=== PATIENT | female | born 1990 ===

== ENCOUNTER 2021-12-25 14:36 | Observation (INO) | payer SELFPAY ==
[~2021-12-25] VITALS: Ht 165.1 cm; Wt 109.0 kg
[2021-12-25 15:16] LABS: BASOPHILS ABSOLUTE AUTO 0.04 K/mm3 (0.00-0.23); BASOPHILS PERCENT AUTO 0 % (0-2); EOSINOPHILS ABSOLUTE AUTO 0.23 K/mm3 (0.00-0.68); EOSINOPHILS PERCENT AUTO 2 % (0-6); Hematocrit 36.4 % (33.0-51.0); Hemoglobin 12.4 g/dL (11.5-16.0); IMMATURE GRAN ABSOLUTE AUTO 0.02 K/mm3 (0.00-0.10); IMMATURE GRAN PERCENT AUTO 0 % (0-1); LYMPHOCYTES ABSOLUTE AUTO 2.55 K/mm3 (0.84-5.20); LYMPHOCYTES PERCENT AUTO 26 % (21-46); MONOCYTES ABSOLUTE AUTO 0.57 K/mm3 (0.16-1.47); MONOCYTES PERCENT AUTO 6 % (4-13); Mean Corpuscular HGB 28.8 pg (26.0-34.0); Mean Corpuscular HGB Conc 34.1 g/dL (31.5-36.5); Mean Corpuscular Volume 85 fL (80-100); Mean Platelet Volume 10.9 fL (9.1-12.4); NEUTROPHILS ABSOLUTE AUTO 6.34 K/mm3 (1.96-9.15); NEUTROPHILS PERCENT AUTO 65 % (41-73); Platelet Count 251 K/mm3 (150-400); RDW Coefficient Variation 11.9 % (11.7-14.2); RDW Standard Deviation 36.4 fL (35.1-46.3); Red Blood Cell Count 4.31 M/mm3 (3.80-5.20); White Blood Cell Count 9.75 K/mm3 (4.00-11.30)
[2021-12-25 15:35] LABS: Albumin, Blood 3.9 g/dL (3.4-5.0); Albumin/Globulin Ratio 1.2 (0.8-1.8); Bilirubin, Total 0.9 mg/dL (0.1-1.0); Bun/Creatinine Ratio 21.5 (12.0-20.0); Calcium, Blood 8.9 mg/dL (8.5-10.1); Creatinine, Blood 0.51 mg/dL (0.40-1.00); Globulin, Blood 3.3 g/dL (2.2-4.0); Potassium, Blood 3.8 mmol/L (3.5-5.5); Total Protein, Blood 7.2 g/dL (6.4-8.2)
[2021-12-25 17:20] LABS: Source, Urine Clean Catch
[2021-12-25 17:25] LABS: Bilirubin, Urine Neg (Neg); Blood, Urine Neg (Neg); Glucose Qualitative, Urine Neg (Neg); Ketones, Urine Neg (Neg); Leukocyte Esterase, Urine Neg (Neg); Nitrite, Urine Neg (Neg); Protein, Urine Neg (Neg); Urobilinogen, Urine NORM (Normal)
[2021-12-25 17:57] LABS: Appearance, Urine Hazy (Clear); Color, Urine Pale Yellow (P-Yellow)
[2021-12-25 17:58] LABS: Bacteria Many /hpf; Red Blood Cells, Urine 0-2 /hpf (0-2); Squamous Epithelial Cells Many /hpf (Few); White Blood Cells, Urine 0-2 /hpf (0-5)
[2021-12-25 19:49] LABS: SARS-Cov-2 (COVID-19) PCR, MMC POSITIVE (NEGATIVE)
[2021-12-25] MEDS ORDERED: LOSA25 (23:07)
[2021-12-25] MEDS ORDERED: LOSARTAN PO (23:12)
[2021-12-26 05:00] LABS: BASOPHILS ABSOLUTE AUTO 0.03 K/mm3 (0.00-0.23); BASOPHILS PERCENT AUTO 0 % (0-2); EOSINOPHILS ABSOLUTE AUTO 0.24 K/mm3 (0.00-0.68); EOSINOPHILS PERCENT AUTO 3 % (0-6); Hematocrit 36.2 % (33.0-51.0); IMMATURE GRAN ABSOLUTE AUTO 0.01 K/mm3 (0.00-0.10); IMMATURE GRAN PERCENT AUTO 0 % (0-1); LYMPHOCYTES ABSOLUTE AUTO 1.68 K/mm3 (0.84-5.20); LYMPHOCYTES PERCENT AUTO 23 % (21-46); MONOCYTES ABSOLUTE AUTO 0.57 K/mm3 (0.16-1.47); MONOCYTES PERCENT AUTO 8 % (4-13); Mean Corpuscular HGB 28.8 pg (26.0-34.0); Mean Corpuscular HGB Conc 33.1 g/dL (31.5-36.5); Mean Corpuscular Volume 87 fL (80-100); Mean Platelet Volume 10.8 fL (9.1-12.4); NEUTROPHILS ABSOLUTE AUTO 4.89 K/mm3 (1.96-9.15); NEUTROPHILS PERCENT AUTO 66 % (41-73); Platelet Count 206 K/mm3 (150-400); RDW Coefficient Variation 11.9 % (11.7-14.2); RDW Standard Deviation 38.3 fL (35.1-46.3); Red Blood Cell Count 4.16 M/mm3 (3.80-5.20); White Blood Cell Count 7.42 K/mm3 (4.00-11.30)
[2021-12-26 05:18] LABS: Albumin, Blood 3.5 g/dL (3.4-5.0); Albumin/Globulin Ratio 1.1 (0.8-1.8); Bilirubin, Total 1.2 mg/dL (0.1-1.0); Bun/Creatinine Ratio 17.1 (12.0-20.0); Calcium, Blood 8.3 mg/dL (8.5-10.1); Creatinine, Blood 0.53 mg/dL (0.40-1.00); Globulin, Blood 3.2 g/dL (2.2-4.0); Potassium, Blood 3.8 mmol/L (3.5-5.5); Total Protein, Blood 6.7 g/dL (6.4-8.2)
--- NOTE | 2021-12-26 05:26 | NUR ---
PT A/OX4 VERY PLEASANT [place]ET[place]ESE SPEAKING ONLY. PT REPORTS ONLY HAVING HX OF HTN AND HAVING BEEN TOLD SHE HAD GALLSTONES ABOUT A YEAR AGO. PT REPORTS SHE ONLY TAKES LOSARTAN HOWEVER IT IS THE BRAND FROM [place] AND DOES NOT HAVE ANY OTHER MEDICATION COMBINED/ADDED. PT TO BE ON CLEAR LIQUID DIET TILL 1000 AM. 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 PT STATES SHE IS CURRENTLY WORKING IN [employer] WHERE SHE JUST STANDS AND SORTS OUT BERRIES AND DOES NO LIFTING. SHE IS HOPING TO BE EDU TO TO RETURN TO WORK AND CONCERNED REGARDING THIS. EXPLAINED TO PT THAT MD WOULD SPEAK WITH HER REGARDING PLAN AND WOULD TELL HER HOW HER RECOVERY WOULD LOOK LIKE. PT SIGNIFICANT OTHER IS DAVE #[phone] AND IF POSSIBLE SHE WOULD LIKE HER PRESENT WHEN TALKING ABOUT HER CARE. PT PAIN ASSESSED FREQUENTLY AND PT MADE AWARE THAT IF NEEDED SHE HAS PAIN MEDICATIONS AVAILABLE. SHE REPORTS SHE DRINKS BEER ONCE A WEEK AND USUALLY DRINKS 5-7CANS AT A TIME. LAST TIME SHE DRANK WAS ABOUT A WEEK AGO. SHE IS A DAILY SMOKER AND SMOKES ABOUT A HALF A PACK PER DAY. SHE IS NOT INTERESTED IN SMOKING CESSATION STATES THAT QUITING IS MORE OF A DECISION TO DO THAN BEING EDUCATED ON IT. NO OTHER CONCERNS OVERNIGHT.
--- NOTE | 2021-12-26 18:59 | NUR ---
PATIENT IS ALERT AND ORIENTED. SHE IS BACK IN ROOM 361 AFTER LAP KAYLA. SHE IS AWAKE. C/O 6/10 PAIN MANAGED PER EMAR. VITALS STABLE. PATIENT STATES SHE WILL CALL BEFORE GETTING OOB AND WAIT FOR ASSISTANCE. INSCISIONS ARE CLOSED AND NOT BLEEDING. WILL CONTINUE TO MONITOR
--- NOTE | 2021-12-26 23:04 | NUR ---
PATIENTS VITAL SIGNS HAVE REMAINED STABLE THROUGHOUT THE EVENING. OOB WITH THIS RN TO BATHROOM. PATIENT IS VOIDING CLEAR YELLOW URINE. MINIMAL COMPLAINTS OF PAIN EARLIER UPON ARRIVAL TO ROOM 361. TORADOL GIVEN AT APPROXIMATELY 1830 WITH GOOD RESULT. ALL FOUR ABDOMINAL INCISIONS ARE CLEAN, DRY, WELL APPROXIMATED AND INTACT. WILL COMTINUE CLOSE MONITORING.
--- NOTE | 2021-12-27 03:02 | NUR ---
Patient had a very restful night. VS all remained stable until around 0200 when Roxanne had another low grade temp of 99.9 degrees. APAP was given and top blanket was removed. Patient is an alert and oriented and cooperative with care. Abdominal incision sites are all soft flat and dry and well approximated. Patient was medicated once after arrival from PACU with toradol. otherwise no complaints of untolerable discomfort overnight.
--- NOTE | 2021-12-27 08:00 | NUR ---
pt sitting up in bed awake a/ox3, pleasant and cooperative with care, follows commands well, denies pain at this time, will probably discharge today, pt asking when, no needs or complaints. call light in reach.
[2021-12-27] MEDS ORDERED: Acetaminophen325 M1 PO (11:59)
[2021-12-27] MEDS ORDERED: IBUP400 PO (12:00)
[2021-12-27] MEDS ORDERED: HYDROCODONE-AC1 EA10 PO (12:00)
--- NOTE | 2021-12-27 12:29 | NUR ---
Pt has been discharged to home, went over her discharge instructions with her she verbalized understanding. iv removed intact, prescription given to her in her discharge packet. waiting for ride at this time.
--- NOTE | 2021-12-27 13:17 | NUR ---
PT LEFT VIA WHEELCHAIR WITH NURSE IN ATTENDENCE AND HER RIDE WITH ALL BELONGINGS.
--- NOTE | 2021-12-30 11:16 | NUR ---
12/30/21 1116 Emily Solitario VERIFICATIONS: EDIT CHART.
== END 2021-12-27 13:15 | disposition home or self-care (01) ==
LOC: ER 14:36 → MEDS 21:54
PROVIDERS: Physician Assistant; ADMIT Surgery
DX: K80.12 Calculus of gallbladder with acute and chronic cholecystitis without obstruction (principal); U07.1 COVID-19; I10 Essential (primary) hypertension; F17.210 Nicotine dependence, cigarettes, uncomplicated; Z79.899 Other long term (current) drug therapy
CPT/HCPCS: 36415; 74300; 76705; 80053; 81001; 81025; 83690; 85025; 87086; 88304; 96361; 96365; 96375; 99285-25; A9270; C1729; G0378; J0690; J1100; J1885; J2270; J2405; J2543; J2704; J2710; J2795; J3010; J7030; J7120; U0004